=== PATIENT | female | born 1955 | race African-American/Black ===

== ENCOUNTER → 2016-11-23 | Outpatient (CLI) | payer OTHER ==
[2016-07-20 15:54] VITALS: BP 131/75
[~2016-11-23] MED LIST: ASPI81TA2 PO; ASPI81TA9 PO; ATOR40TA59 PO; CYAN10005 PO; FAMO20TA9 PO; FERR325C PO; FOLI1TAB16 PO; FURO20TA3 PO; GLIM2TAB2 PO; HYDR12.53 PO; LOSA25TA PO; LOSA50TA6 PO; MELO-156 PO; METO25TA4 PO; NITR0.4T SL; PANT40TA3 PO; PRAS10TA4 PO; ROPI0.252 PO; SIMV10TA3 PO; SITA100T PO; SITA50TA PO; TIZA6CAP PO; TRAM50TA PO; TRAZ100T12 PO
--- NOTE | 2016-11-23 10:14 | RAD ---
DATE: 11/23/2016. EXAM: DIGITAL SCREEN BILAT W/CAD. HISTORY: Routine mammographic screening. COMPARISON: 06/22/1952. This study was interpreted with the benefit of Computerized Aided Detection (CAD). FINDINGS: The breast parenchyma shows scattered fibroglandular densities. There are no suspicious masses, microcalcifications or architectural distortion. Scattered and coarse calcifications are benign. The parenchymal pattern is stable. BI-RADS CATEGORY: 2 BENIGN FINDING(S). RECOMMENDED FOLLOW-UP: 12M 12 MONTH FOLLOW-UP. PQRS compliance statement: Patient information was entered into a reminder system with a target due date 11/23/2017 for the next mammogram. Mammography is a sensitive method for finding small breast cancers, but it does not detect them all and is not a substitute for careful clinical examination. A negative mammogram does not negate a clinically suspicious finding and should not result in delay in biopsying a clinically suspicious abnormality. "Our facility is accredited by the [employer] Mammography Program."
== END | disposition home or self-care (01) ==
LOC: MAMMO 08:18
PROVIDERS: ATTEND Family Medicine
DX: Z12.31 Encounter for screening mammogram for malignant neoplasm of breast (principal)
CPT/HCPCS: G0202; 77067

== ENCOUNTER 2017-04-15 21:38 | Inpatient (IN) | payer OTHER ==
[~2017-04-15] VITALS: Ht 154.9 cm; Wt 69.9 kg
[~2017-04-15 21:38] MED LIST changes: +ASPI-612 PO; +ASPI-630 PO; -ASPI81TA2 PO; -ASPI81TA9 PO; -MELO-156 PO; +MELO7.5T29 PO; -PRAS10TA4 PO; +PRAS10TA9 PO
[2017-04-15] MEDS ORDERED: fentaNYL PF VIAL 100 MCG/2 ML VIAL IV PRN ×2 (22:00→23:45)
--- NOTE | 2017-04-15 22:13 | ED.ADGEN ---
Past Medical History Past Medical History: Cancer, Diabetes-Type I, Heart Disease, Hypertension, NC Additional Past Medical Histor: cardiomegaly, uterine cancer Past Surgical History: Hysterectomy, Other Additional Past Surgical Histo: Carpal tunnel, cardiac cath with stents,left nephrectomy Alcohol Use: None Drug Use: None Adult General Chief Complaint Chief Complaint: CHEST PAIN HPI HPI Patient is a 61 year old woman, history of type 2 diabetes mellitus, hypertension, CAD status post NC and stent placement, uterine cancer, who presents to the emergency department with complaint of chest pain. Patient states she's been expressing intermittent right-sided chest pain since yesterday morning. She states that "it started out feeling like when I had my heart attack last year". She describes it as a "soreness", located in the right side of her chest without radiation, states that it comes and goes of its own volition, without any inciting or relieving factors. She states that she was seen at earlier today for back pain, did receive an injection in her lower back. She states it was a steroid, and her sugars are running high since that time, currently her blood glucose is 343, she states she did take insulin at home after sugar of 345 shortly before arrival in the ED. Patient states she takes a blood thinner, and also a daily aspirin. She states she takes all medications as directed by her primary care provider. She states that she has an appointment to follow-up with her stock checker tomorrow for a regular checkup ,she sees Dr. Guillory patient denies any swelling extremities, any rashes, any fevers or chills, shortness breath, nausea or vomiting. She states that he experienced an episode of diaphoresis along with worsening of the chest pain or problem to come to the ED. She states currently the pain is about 7-10, is better than it was when she came in to the ED. No history of DVT or PE, weakness , numbness, tingling, headache, recent travel, recent surgery, injuries, or medication changes. Review of Systems Review of Systems Constitutional: Denies fever or chills. [] Eyes: Denies change in visual acuity. [] HENT: Denies nasal congestion or sore throat. [] Respiratory: Denies cough or shortness of breath. [] Cardiovascular: Denies chest pain or edema. [] GI: Denies abdominal pain, nausea, vomiting, bloody stools or diarrhea. [] : Denies dysuria. [] Musculoskeletal: Denies back pain or joint pain. [] Integument: Denies rash. [] Neurologic: Denies headache, focal weakness or sensory changes. [] Endocrine: Denies polyuria or polydipsia. [] Lymphatic: Denies swollen glands. [] Psychiatric: Denies depression or anxiety. [] Current Medications Current Medications Current Medications Medications (Trade) Dose Ordered Sig/Flory Start Time Stop Time Status Last Admin Dose Admin Acetaminophen (Tylenol) 650 mg PRN Q4HRS PRN 04/15/17 23:45 04/16/17 23:44 Aspirin (Children'S Aspirin) 324 mg 1X ONCE 04/15/17 22:45 04/15/17 22:46 DC 04/15/17 22:45 324 MG Dextrose (Dextrose 50%-Water Syringe) 12.5 gm PRN Q15MIN PRN 04/15/17 23:45 Fentanyl Citrate (Fentanyl 2ml Vial) 50 mcg PRN Q2HR PRN 04/15/17 23:45 04/16/17 23:44 Insulin Human Regular (NovoLIN R VIAL) 5 unit 1X ONCE 04/15/17 23:45 04/15/17 23:46 DC 04/16/17 00:01 5 UNIT Nitroglycerin (Nitrostat) 0.4 mg PRN Q5MIN PRN 04/15/17 22:00 04/15/17 22:33 0.4 MG Ondansetron HCl (Zofran) 4 mg PRN Q8HRS PRN 04/15/17 23:45 04/16/17 23:44 Allergies Allergies Allergies Coded Allergies Type Severity Reaction Last Updated Verified No Known Drug Allergies 07/20/16 No Physical Exam Physical Exam Constitutional: Well developed, well nourished, no acute distress, non-toxic appearance. [] HENT: Normocephalic, atraumatic, bilateral external ears normal, oropharynx moist, no oral exudates, nose normal. [] Eyes: PERRLA, EOMI, conjunctiva normal, no discharge. [] Neck: Normal range of motion, no tenderness, supple, no stridor. [] Cardiovascular:Heart rate regular rhythm, no murmur, S1, S2, no rubs or gallops. [] Lungs & Thorax: Bilateral breath sounds clear to auscultation, no wheezing, rhonchi, rales. No chest wall crepitus, patient with mild tenderness palpation in the right chest wall, not reproducing symptoms. No lesions or other maladies identified. Abdomen: Bowel sounds normal, soft, no tenderness, no rebound, rigidity, no guarding, no masses, no pulsatile masses. [] Skin: Warm, dry, no erythema, no rash. [] Back: No tenderness, no CVA tenderness. Patient with a Band-Aid in place over the site of her steroid injection, the lumbar spine, there is no evidence of infection, induration, tenderness or other abnormality. [] Extremities: No tenderness, no cyanosis, no clubbing, ROM intact, no edema. Negative Homans sign. [] Neurologic: Alert and oriented X 3, normal motor function, normal sensory function, no focal deficits noted. [] Psychologic: Affect normal, judgement normal, mood normal. [] Current Patient Data Vital Signs Vital Signs Date Time Temp Pulse Resp B/P (MAP) Pulse Ox O2 Delivery O2 Flow Rate FiO2 04/15/17 22:38 88 16 116/70 (85) 97 Room Air 04/15/17 21:49 98.1 98.1 Lab Values Laboratory Tests Test 04/15/17 21:49 04/15/17 22:04 04/15/17 22:15 Glucose (Fingerstick) 343 mg/dL (70-99) H White Blood Count 6.0 x10^3/uL (4.0-11.0) Red Blood Count 3.71 x10^6/uL (3.50-5.40) Hemoglobin 11.8 g/dL (12.0-15.5) L Hematocrit 34.5 % (36.0-47.0) L Mean Corpuscular Volume 93 fL (79-100) Mean Corpuscular Hemoglobin 32 pg (25-35) Mean Corpuscular Hemoglobin Concent 34 g/dL (31-37) Red Cell Distribution Width 13.4 % (11.5-14.5) Platelet Count 256 x10^3/uL (140-400) Neutrophils (%) (Auto) 75 % (31-73) H Lymphocytes (%) (Auto) 24 % (24-48) Monocytes (%) (Auto) 1 % (0-9) Eosinophils (%) (Auto) 0 % (0-3) Basophils (%) (Auto) 1 % (0-3) Neutrophils # (Auto) 4.5 x10^3uL (1.8-7.7) Lymphocytes # (Auto) 1.4 x10^3/uL (1.0-4.8) Monocytes # (Auto) 0.0 x10^3/uL (0.0-1.1) Eosinophils # (Auto) 0.0 x10^3/uL (0.0-0.7) Basophils # (Auto) 0.0 x10^3/uL (0.0-0.2) Sodium Level 137 mmol/L (136-145) Potassium Level 4.2 mmol/L (3.5-5.1) Chloride Level 100 mmol/L (98-107) Carbon Dioxide Level 24 mmol/L (21-32) Anion Gap 13 (6-14) Blood Urea Nitrogen 23 mg/dL (7-20) H Creatinine 1.5 mg/dL (0.6-1.0) H Estimated GFR (Cockcroft-Gault) 42.4 Glucose Level 356 mg/dL (70-99) H Calcium Level 9.2 mg/dL (8.5-10.1) Total Bilirubin 0.3 mg/dL (0.2-1.0) Direct Bilirubin 0.1 mg/dL (0.0-0.2) Aspartate Amino Transferase (AST) 23 U/L (15-37) Alanine Aminotransferase (ALT) 41 U/L (14-59) Alkaline Phosphatase 56 U/L (46-116) Troponin I Quantitative < 0.017 ng/mL (0.000-0.055) JZ-[id number]-[id number]-Type Natriuretic Peptide 23 pg/mL (0-124) Total Protein 8.3 g/dL (6.4-8.2) H Albumin 4.0 g/dL (3.4-5.0) Lipase 367 U/L (73-393) Urine Collection Type Unknown Urine Color Yellow Urine Clarity Clear Urine pH 6.0 Urine Specific [place] >=1.030 Urine Protein Negative mg/dL (NEG-TRACE) Urine Glucose (UA) >=1000 mg/dL (NEG) Urine Ketones (Stick) Negative mg/dL (NEG) Urine Blood Negative (NEG) Urine Nitrite Negative (NEG) Urine Bilirubin Negative (NEG) Urine Urobilinogen Dipstick 0.2 mg/dL (0.2 mg/dL) Urine Leukocyte Esterase Negative (NEG) Urine RBC 0 /HPF (0-2) Urine WBC Occ /HPF (0-4) Urine Squamous Epithelial Cells Few /LPF Urine Bacteria Few /HPF (0-FEW) Urine Opiates Screen Neg (NEG) Urine Methadone Screen Neg (NEG) Urine Barbiturates Neg (NEG) Urine Phencyclidine Screen Neg (NEG) Urine Amphetamine/Methamphetamine Neg (NEG) Urine Benzodiazepines Screen Neg (NEG) Urine Cocaine Screen Neg (NEG) Urine Cannabinoids Screen Neg (NEG) Urine Ethyl Alcohol Neg (NEG) Laboratory Tests 04/15/17 22:04 Laboratory Tests 04/15/17 22:04 EKG EKG EC: Sinus rhythm, heart rate 79 bpm, right axis deviation, QTC of 432, CT 182, QRS of 74, T-wave inversions noted in the anterior leads, left ventricle hypertrophy with repolarization, when compared to ECG from 07/20/2016 , patient has had interval normalization of leads 2, and aVF, with T-wave flattening as opposed to the T-wave inversions are previously noted, with lessening of the T-wave inversions noted in the lateral leads. No ST elevations or depressions, abnormal ECG, does not meet STEMI criteria. [] Radiology/Procedures Radiology/Procedures Chest x-ray: One view: Normal cardiopulmonary silhouette, slightly suboptimal inspiration effort, but no infiltrates, no pneumothorax, no effusions, no soft tissue or bony abnormalities identified. As interpreted by me. [] Course & Med Decision Making Course & Med Decision Making Pertinent Labs and Imaging studies reviewed. (See chart for details) Patient's chest pain improved significantly in the emergency department after administration of nitroglycerin, and aspirin. Is resting comfortably, ECG does not reveal any significant changes from prior, x-ray is unremarkable, laboratory studies reveal a normal troponin. Patient with a glucose of 343, consistent with report that she received a steroid injection today. Did discuss findings as above, she is agreeable for admission to the hospital for additional evaluation of her chest pain, due to her history and symptoms. I did discuss findings as above with Dr. Saenz, her primary care provider, patient was accepted to take full admission to his service to the cardiac telemetry floor, with consultation placed for Dr. Guillory. Bridge orders entered per discussion. Dragon Disclaimer Dragon Disclaimer This electronic medical record was generated, in whole or in part, using a voice recognition dictation system. Departure Impression: Primary Impression: Chest pain Disposition: 09 ADMITTED INPATIENT Admitting Physician: Khurram Saenz Condition: IMPROVED WILVER SMITH DO Apr 15, 2017 22:13
[2017-04-15 22:20] LABS: BASO % 1 % (0-3); EOS % 0 % (0-3); HEMATOCRIT 34.5 % (36.0-47.0); HEMOGLOBIN 11.8 g/dL (12.0-15.5); LYMPH # 1.4 x10^3/uL (1.0-4.8); LYMPH % 24 % (24-48); MEAN CORPUSCULAR HEMOGLOBIN 32 pg (25-35); MEAN CORPUSCULAR HGB CONC 34 g/dL (31-37); MEAN CORPUSCULAR VOLUME 93 fL (79-100); MONO % 1 % (0-9); NEUT % 75 % (31-73); PLATELET COUNT 256 x10^3/uL (140-400); RED BLOOD COUNT 3.71 x10^6/uL (3.50-5.40); RED CELL DISTRIBUTION WIDTH 13.4 % (11.5-14.5)
[2017-04-15 22:21] LABS: CALCIUM 9.2 mg/dL (8.5-10.1); CREATININE 1.5 mg/dL (0.6-1.0); GFR 42.4; POTASSIUM 4.2 mmol/L (3.5-5.1)
[2017-04-15] MEDS: NITROGLYCERIN SUBLINGUAL 0.4 MG BOTTLE OF 25. SL PRN ×2 (22:22→22:33)
[2017-04-15 22:27] LABS: DIRECT BILIRUBIN 0.1 mg/dL (0.0-0.2); TOTAL BILIRUBIN 0.3 mg/dL (0.2-1.0); TOTAL PROTEIN 8.3 g/dL (6.4-8.2)
[2017-04-15] MEDS ORDERED: ONDANSETRON PF 4 MG/2 ML VIAL. IV ONE (22:30)
[2017-04-15 22:36] LABS: BILIRUBIN,URINE NEGATIVE (NEG); GLUCOSE,URINE >=1000 mg/dL (NEG); NITRITE,URINE NEGATIVE (NEG); PROTEIN,URINE NEGATIVE (NEG-TRACE); UROBILINOGEN,URINE 0.2 mg/dL (0.2 mg/dL)
[2017-04-15 22:42] LABS: BARBITURATES NEG (NEG); BENZODIAZEPINES NEG (NEG); CANNABINOIDS NEG (NEG); COCAINE NEG (NEG); METHADONE NEG (NEG); OPIATES NEG (NEG); PHENCYCLIDINE NEG (NEG)
[2017-04-15 22:44] LABS: BACTERIA,URINE FEW /HPF (0-FEW); RBC,URINE 0 /HPF (0-2); SQUAMOUS EPITHELIAL CELL,UR FEW /LPF; WBC,URINE OCC /HPF (0-4)
[2017-04-15] MEDS ORDERED: ASPIRIN CHEWABLE 81 MG TABLET. PO ONE (22:45)
[2017-04-15] MEDS ORDERED: INSULIN REGULAR 100 UNIT/ML 10ML VIAL. IV ONE (23:45)
[2017-04-15] MEDS ORDERED: DEXTROSE 50% 25 GM / 50ML DISP.SYRIN. IV PRN (23:45)
[2017-04-15] MEDS ORDERED: ACETAMINOPHEN 325 MG TABLET. PO PRN (23:45)
[2017-04-15] MEDS ORDERED: ONDANSETRON PF 4 MG/2 ML VIAL. IV PRN (23:45)
[2017-04-16] VITALS (7 sets, daily range): BP systolic 118–142; BP diastolic 67–80
--- NOTE | 2017-04-16 01:26 | ACF ---
Admission Forms Criteria CARDIOLOGY GRG Clinical Indications for Admission to Inpatient Care ( Place 'X' for any and all applicable criteria): Hospital admission is needed for appropriate care of the patient because of ANY ONE of the following (1): [ ] I. Hemodynamic instability as indicated by ALL of the following (1)(2)(3) (4)(5) [ ]a) Vital signs or other findings not as expected for chronic patient condition or baseline [ ]b) Instability indicated by ANY ONE of the following: [ ]i) Hypotension [ ]ii) Symptomatic Tachycardia unresponsive to treatment ( e.g., analgesia, fluids, sedation as indicated) [ ]iii) Inadequate perfusion indicated by ANY ONE of the following: [ ] 1) Lactic acidosis (> 2 mmol/L) [ ] 2) New abnormal capillary refill (> 3 seconds) [ ] 3) Reduced urine output [ ] 4) New altered mental status [ ]iv) Orthostatic vital sign changes unresponsive to treatment (e.g., fluids) [ ]v) IV inotropic or vasopressor medication required to maintain adequate blood pressure or perfusion [ ] II. Severe heart failure as indicated by ANY ONE of the following(17)(18) [ ]a) Respiratory distress [ ]b) Hypotension [ ]c) Anasarca (refractory to outpatient therapy) [ ]d) Cardiac arrhythmias of immediate concern [ ]e) Myocardial ischemia [ ] III. Cardiac arrhythmias or findings of immediate concern indicated by ANY ONE of the following (19)(20): [ ] a) Heart rhythms that are inherently dangerous or unstable indicated by ANY ONE of the following (21)(22)(23): [ ] i) Resuscitated ventricular fibrillation or cardiac arrest [ ] ii) Ventricular escape rhythm [ ] iii) Sustained ventricular tachycardia (30 seconds or more of ventricular rhythm at greater than 100 beats per minute) [ ] iv) Nonsustained ventricular tachycardia and ANY ONE of the following: [ ] 1) Suspected cardiac ischemia as cause or consequence of ventricular tachycardia [ ] 2) In setting of acute myocarditis [ ] b) Unstable cardiac conduction defects indicated by ANY ONE of the following(23)(24)(25) [ ] i) Type II second-degree atrioventricular block [ ]ii) Third-degree atrioventricular block [ ]iii) New-onset left bundle branch block with suspected myocardial ischemia [ ]c) Any heart rhythm and ANY ONE of the following (21)(22)(26)(27) (28) [ ] i) Continuous long-term ECG monitoring needed (e.g., initiation of drug requiring monitoring for more than 24 hours) [ ] ii) Patient has automatic implanted cardioverter defibrillator that is repeatedly firing, malfunctioning, or in need of immediate adjustment of settings beyond the scope of ambulatory or observation care [ ]d) Heart rhythms of concern due to ANY ONE of the following: [ ] i) Hypotension [ ] ii) Respiratory distress [ ] iii) Association with other significant symptoms (e.g., bradycardia with syncope or ongoing dizziness, supraventricular tachycardia with chest pain (14)(15)(17) [ ] IV. Monitoring for cardiac contusion beyond the scope of observation care needed [A](30)(31)(32) [ ] V. Surgical or device complication (e.g., valve replacement complication , pacemaker dysfunction) (35)(41)(44)(45)(46) [ ] . Inpatient palliative care needed. [B](49) Also use Inpatient Palliative Care Criteria [ ] VII. Nonbacterial thrombotic (marantic) endocarditis (36)(43)(47)(48) [X] VIII. Cardiology condition, symptom, or finding for which emergency and observation care has failed or are not considered appropriate. [ ] IX. Acute valvular disease requiring inpatient as indicated by ANY ONE of the following (41) [ ]a) Acute valvular regurgitation (42) [ ]b) Noninfectious valvulitis (43) [ ]c) Obstructive valve thrombosis [ ]d) Paravalvular leak [ ]e) Other significant valvular disorder remaining after emergency or observation level of care (as appropriate) [ ]X. Pericardial disease requiring inpatient treatment as indicated by ANY ONE of the following (33)(34)(35)(36)(37) [ ]a) Suspected tamponade (38)(39)(40) [ ]b) Hemopericardium [ ]c) Other significant pericardial disorder remaining after emergency or observation level of care (as appropriate) [ ] XI. Cardiac ischemia beyond scope of emergency and observation care. [ ] XII. Hypertension requiring inpatient treatment as indicated by ANY ONE of the following (6)(7)(8) [ ]a) SBP greater than 220 mm Hg or DBP greater than 120 mmHg despite treatment [ ]b) SBP greater than 140 mm Hg or DBP greater than 100 mm Hg with evidence of acute end organ damage as indicated by ANY ONE of the following [ ] i) Encephalopathy [ ] ii) Acute renal failure as indicated by new onset of ANY ONE of the following (9)(10)(11)(12)(13) [ ]1) 3-fold rise in serum creatinine from baseline [ ]2) Serum creatinine greater than 4 mg/dL ( 354 micromoles/L) with acute rise greater than 0.5 mg/dL (44.2 micromoles/L) [ ]3) Reduction of more than 75% in estimated glomerular filtration rate from baseline [ ]4) Estimated glomerular filtration rate less than 35 mL/min/1.73m2 (0.59 mL/sec/1.73m2) in child up to 18 years of age [ ]5) Cessation of urine output indicated by ALL of the following [ ]A. Adequate volume status [ ]B. Inadequate urine output as indicated by ANY ONE of the following [ ]a. Urine output less than 0.3 mL/kg/hr for 24 hours [ ]b. Anuria (urine output less than 0.1 mL/kg/hr) for 12 hours [ ] iii) Aortic dissection [ ] iv) Myocardial Ischemia [ ] v) Left ventricular heart failure [ ]vi) Retinal Hemorrhage [ ]vii) Other significant finding [ ]c) Hypertension in child requiring inpatient treatment as indicated by ALL of the following(14)(15)(16) [ ] i) Outpatient treatment not effective, not available, or not appropriate [ ]ii) SBP or DBP greater than 95th percentile for age [ ]iii) Evidence of acute end organ damage as indicated by ANY ONE of the following [ ]1) Altered mental status [ ]2) Acute renal failure as indicated by new onset of ANY ONE of the following(9)(10)(11)(12)(13) [ ]A. 3-fold rise in serum creatinine from baseline [ ]B. Serum creatinine greater than 4 mg/dL (354 micromoles/L) with acute rise greater than 0.5 mg/dL (44.2 micromoles/L) [ ]C. Reduction of more than 75% in estimated glomerular filtration rate from baseline [ ]D. Estimated glomerular filtration rate less than 35 mL/min/1.73m2 (0.59 mL/sec/1.73m2) in child up to 18 years of age [ ]E. Cessation of urine output indicated by ALL of the following [ ]a. Adequate volume status [ ]b. Inadequate urine output as indicated by ANY ONE of the following [ ]i) Urine output less than 0.3 mL/kg/hr for 24 hours [ ]ii) Anuria ( urine output less than 0.1 mL/kg/hr) for 12 hours [ ]3) Severe headache [ ]4) Visual disturbance [ ]5) Retinal hemorrhage [ ]6) Other significant finding [ ]XIII. Complications of transplanted heart indicated by ANY ONE of the following(61): [ ]a) Acute graft rejection requiring inpatient management (eg, intravenous immunosuppression)(62)(63) [ ]b) Acute graft heart failure indicated by ANY ONE of the following(64): [ ]i) Hemodynamic instability [ ]ii) Cardiac arrhythmias of immediate concern [ ]iii) Pulmonary edema that is very severe (eg, mechanical ventilation needed, imminent or likely, need for 100% oxygen to keep oxygen saturation above 90%) [ ]iv) Pulmonary edema that is persistent as indicated by ALL of the following: [ ]1) New need for oxygen therapy to keep oxygen saturation above 90% (or increased FiO2 need from baseline) [ ]2) Has not improved sufficiently with emergency department or observation care IV diuretics or other heart failure treatments[E] [ ]v) Altered mental status that is severe or persistent [ ]vi) Increased creatinine (new on laboratory test) with reduction of more than 50% in estimated glomerular filtration rate from baseline [ ]vii) Progressively (ongoing) rising creatinine (known from past laboratory test) with reduction of more than 25% in estimated glomerular filtration rate from baseline [ ]viii) Acute renal failure [ ]ix) Acute peripheral ischemia (eg, examination shows pulseless, cool, mottled, or cyanotic extremity) [ ]x) Pulmonary artery catheter monitoring needed [ ]xi) Other sign or symptom of heart failure requiring inpatient treatment (ie, too severe or not responsive to outpatient and observation care treatment) [ ]c) Infection requiring inpatient management (eg, Hemodynamic instability, need for intravenous antimicrobial treatment)(66)(67)(68)(69)(70) [ ]d) Cardiac allograft vasculopathy requiring inpatient management ( eg evidence of cardiac ischemia)(71) [ ]e) Other complication of transplanted heart (eg, stroke, severe pulmonary hypertension, severe valvular dysfunction) requiring inpatient management(72) The original [facility] content created by [facility] has been revised. The portions of the content which have been revised are identified through the use of italic text or in bold, and [facility] has neither reviewed nor approved the modified material. All other unmodified content is copyright [facility]. Please see references footnoted in the original [facility] edition 2016 Admission Criteria Met?: Yes LORRAINE AVALOS Apr 16, 2017 01:26
[2017-04-16 05:09] LABS: BASO % 0 % (0-3); EOS % 0 % (0-3); HEMATOCRIT 34.3 % (36.0-47.0); HEMOGLOBIN 11.6 g/dL (12.0-15.5); LYMPH # 1.9 x10^3/uL (1.0-4.8); LYMPH % 27 % (24-48); MEAN CORPUSCULAR HEMOGLOBIN 32 pg (25-35); MEAN CORPUSCULAR HGB CONC 34 g/dL (31-37); MEAN CORPUSCULAR VOLUME 94 fL (79-100); MONO % 3 % (0-9); NEUT % 70 % (31-73); PLATELET COUNT 255 x10^3/uL (140-400); RED BLOOD COUNT 3.65 x10^6/uL (3.50-5.40); RED CELL DISTRIBUTION WIDTH 13.2 % (11.5-14.5); WHITE BLOOD COUNT 6.9 x10^3/uL (4.0-11.0)
[2017-04-16 05:19] LABS: CALCIUM 9.6 mg/dL (8.5-10.1); CREATININE 1.5 mg/dL (0.6-1.0); GFR 42.4; POTASSIUM 4.3 mmol/L (3.5-5.1)
--- NOTE | 2017-04-16 07:09 | EKG ---
[facility] [address] [place] [address] Test Date: 2017-04-15 Test Time: 21:45:47 Pat Name: YEMI URIARTE Department: Room: Gender: F Printer Machine: : [id number] Requested By: WILVER SMITH Order Number: [id number] Reading MD: Measurements Intervals [place] Rate: 79 P: 138 RI: 182 QRS: -177 QRSD: 74 T: 146 QT: 376 QTc: 432 Interpretive Statements SINUS RHYTHM ABNORMAL RIGHT SUPERIOR AXIS DEVIATION T ABNORMALITY IN ANTERIOR LEADS LATERAL LEADS ABNORMAL ECG RI6.01 No previous ECG available for comparison
[2017-04-16] MEDS ORDERED: INSULIN ASPART 300 UNITS/3 ML INSULN.PEN SQ SCH (08:00)
[2017-04-16] MEDS ORDERED: INSULIN DETEMIR 300 UNITS/3 ML INSULN.PEN. SQ ONE (08:15)
--- NOTE | 2017-04-16 08:25 | PDOC1 ---
History and Physical Date of Admission Date of Admission DATE: TIME: 08:22 Past Medical History Cardiovascular: CAD, HTN, [place], Hyperlipidemia Pulmonary: Asthma CENTRAL NERVOUS SYSTEM: Other GI: No pertinent hx Heme/Onc: Cancer Hepatobiliary: No pertinent hx Psych: No pertinent hx Musculoskeletal: Osteoarthritis Rheumatologic: No pertinent hx Infectious disease: No pertinent hx Renal/: Chronic renal insuff Endocrine: Diabetes Past Surgical History Past Surgical History: Hysterectomy, Other Family History Family History: Coronary Artery Disease Social History ALCOHOL: none Drugs: None Current Problem List Problem List Problems Medical Problems: (1) Chest pain Status: Acute Problems: Current Medications Current Medications Current Medications Fentanyl Citrate (Fentanyl 2ml Vial) 25 mcg PRN Q15MIN PRN IV PAIN GREATER THAN 3/10; Start 04/15/17 at 22:00; Stop 04/16/17 at 21:59 Nitroglycerin (Nitrostat) 0.4 mg PRN Q5MIN PRN SL CHEST PAIN Last administered on 04/15/17 22:33; Start 04/15/17 at 22:00 Ondansetron HCl (Zofran) 4 mg 1X ONCE IV ; Start 04/15/17 at 22:30; Stop at 22:31; Status DC Aspirin (Children'S Aspirin) 324 mg 1X ONCE PO Last administered on 04/15/17t 22:45; Start 04/15/17 at 22:45; Stop 04/15/17 at 22:46; Status DC Ondansetron HCl (Zofran) 4 mg PRN Q8HRS PRN IV NAUSEA/VOMITING; Start 04/15/17 at 23:45; Stop 04/16/17 at 23:44 Fentanyl Citrate (Fentanyl 2ml Vial) 50 mcg PRN Q2HR PRN IV PAIN; Start at 23:45; Stop 04/16/17 at 23:44 Acetaminophen (Tylenol) 650 mg PRN Q4HRS PRN PO FEVER; Start 04/15/17 at 23:45 ; Stop 04/16/17 at 23:44 Insulin Aspart (NovoLOG) 0-5 UNITS TIDWMEALS SQ ; Start 04/16/17 at 08:00; Stop 04/16/17 at 08:13; Status DC Dextrose (Dextrose 50%-Water Syringe) 12.5 gm PRN Q15MIN PRN IV SEE COMMENTS; Start 04/15/17 at 23:45 Insulin Human Regular (NovoLIN R VIAL) 5 unit 1X ONCE IV Last administered on 04/16/17t 00:01; Start 04/15/17 at 23:45; Stop 04/15/17 at 23:46; Status DC Aspirin (Ecotrin) 81 mg DAILYWBKFT PO ; Start 04/16/17 at 09:00 Atorvastatin Calcium (Lipitor) 10 mg QHS PO ; Start 04/16/17 at 21:00 Glimepiride (Amaryl) 2 mg DAILY08 PO ; Start 04/17/17 at 08:30 Hydrochlorothiazide (Microzide) 12.5 mg DAILY PO ; Start 04/16/17 at 09:00 Losartan Potassium (Cozaar) 50 mg DAILY08 PO ; Start 04/16/17 at 09:00 Metoprolol Tartrate (Lopressor) 25 mg BID PO ; Start 04/16/17 at 09:00 Pantoprazole Sodium (Protonix) 40 mg DAILY07 PO ; Start 04/16/17 at 09:00 Prasugrel (Effient) 10 mg DAILYWBKFT PO ; Start 04/16/17 at 09:00 Trazodone HCl (Desyrel) 100 mg HS PO ; Start 04/16/17 at 21:00 Insulin Detemir (Levemir) 20 units 1X ONCE SQ ; Start 04/16/17 at 08:15; Stop 04/16/17 at 08:20; Status DC Active Scripts Active Hydrochlorothiazide Capsule (Hydrochlorothiazide) 12.5 Mg Capsule 1 Cap PO DAILY Effient (Prasugrel Hcl) 10 Mg Tablet 10 Mg PO DAILYWBKFT Metoprolol Tartrate 25 Mg Tablet 25 Mg PO BID Atorvastatin Calcium 40 Mg Tablet 10 Mg PO QHS 30 Days Aspirin Ec (Aspirin) 81 Mg Tablet. 81 Mg PO DAILYWBKFT Reported Januvia (Sitagliptin Phosphate) 50 Mg Tablet 50 Mg PO BID Losartan Potassium 50 Mg Tablet 50 Mg PO Protonix (Pantoprazole Sodium) 40 Mg Tablet.dr 1 Tab PO DAILY Trazodone Hcl 100 Mg Tablet 100 Mg PO HS Glimepiride 2 Mg Tablet 2 Mg PO DAILY08 Allergies Allergies: Coded Allergies: No Known Drug Allergies (Unverified , 07/20/16) Vitals Vitals Vital Signs Date Time Temp Pulse Resp B/P (MAP) Pulse Ox O2 Delivery O2 Flow Rate FiO2 04/16/17 06:52 98.6 83 17 130/67 (88) 96 Room Air 98.6 Labs Labs Laboratory Tests Test 04/15/17 21:49 04/15/17 22:04 04/15/17 22:15 04/16/17 04:10 Glucose (Fingerstick) 343 mg/dL (70-99) White Blood Count 6.0 x10^3/uL (4.0-11.0) 6.9 x10^3/uL (4.0-11.0) Red Blood Count 3.71 x10^6/uL (3.50-5.40) 3.65 x10^6/uL (3.50-5.40) Hemoglobin 11.8 g/dL (12.0-15.5) 11.6 g/dL (12.0-15.5) Hematocrit 34.5 % (36.0-47.0) 34.3 % (36.0-47.0) Mean Corpuscular Volume 93 fL (79-100) 94 fL (79-100) Mean Corpuscular Hemoglobin 32 pg (25-35) 32 pg (25-35) Mean Corpuscular Hemoglobin Concent 34 g/dL (31-37) 34 g/dL (31-37) Red Cell Distribution Width 13.4 % (11.5-14.5) 13.2 % (11.5-14.5) Platelet Count 256 x10^3/uL (140-400) 255 x10^3/uL (140-400) Neutrophils (%) (Auto) 75 % (31-73) 70 % (31-73) Lymphocytes (%) (Auto) 24 % (24-48) 27 % (24-48) Monocytes (%) (Auto) 1 % (0-9) 3 % (0-9) Eosinophils (%) (Auto) 0 % (0-3) 0 % (0-3) Basophils (%) (Auto) 1 % (0-3) 0 % (0-3) Neutrophils # (Auto) 4.5 x10^3uL (1.8-7.7) 4.9 x10^3uL (1.8-7.7) Lymphocytes # (Auto) 1.4 x10^3/uL (1.0-4.8) 1.9 x10^3/uL (1.0-4.8) Monocytes # (Auto) 0.0 x10^3/uL (0.0-1.1) 0.2 x10^3/uL (0.0-1.1) Eosinophils # (Auto) 0.0 x10^3/uL (0.0-0.7) 0.0 x10^3/uL (0.0-0.7) Basophils # (Auto) 0.0 x10^3/uL (0.0-0.2) 0.0 x10^3/uL (0.0-0.2) Sodium Level 137 mmol/L (136-145) 137 mmol/L (136-145) Potassium Level 4.2 mmol/L (3.5-5.1) 4.3 mmol/L (3.5-5.1) Chloride Level 100 mmol/L (98-107) 100 mmol/L (98-107) Carbon Dioxide Level 24 mmol/L (21-32) 25 mmol/L (21-32) Anion Gap 13 (6-14) 12 (6-14) Blood Urea Nitrogen 23 mg/dL (7-20) 23 mg/dL (7-20) Creatinine 1.5 mg/dL (0.6-1.0) 1.5 mg/dL (0.6-1.0) Estimated GFR (Cockcroft-Gault) 42.4 42.4 Glucose Level 356 mg/dL (70-99) 360 mg/dL (70-99) Calcium Level 9.2 mg/dL (8.5-10.1) 9.6 mg/dL (8.5-10.1) Total Bilirubin 0.3 mg/dL (0.2-1.0) Direct Bilirubin 0.1 mg/dL (0.0-0.2) Aspartate Amino Transf (AST/SGOT) 23 U/L (15-37) Alanine Aminotransferase (ALT/SGPT) 41 U/L (14-59) Alkaline Phosphatase 56 U/L (46-116) Troponin I Quantitative < 0.017 ng/mL (0.000-0.055) < 0.017 ng/mL (0.000-0.055) XC-Ogs-M-Type Natriuretic Peptide 23 pg/mL (0-124) Total Protein 8.3 g/dL (6.4-8.2) Albumin 4.0 g/dL (3.4-5.0) Lipase 367 U/L (73-393) Urine Collection Type Unknown Urine Color Yellow Urine Clarity Clear Urine pH 6.0 Urine Specific [place] >=1.030 Urine Protein Negative mg/dL (NEG-TRACE) Urine Glucose (UA) >=1000 mg/dL (NEG) Urine Ketones (Stick) Negative mg/dL (NEG) Urine Blood Negative (NEG) Urine Nitrite Negative (NEG) Urine Bilirubin Negative (NEG) Urine Urobilinogen Dipstick 0.2 mg/dL (0.2 mg/dL) Urine Leukocyte Esterase Negative (NEG) Urine RBC 0 /HPF (0-2) Urine WBC Occ /HPF (0-4) Urine Squamous Epithelial Cells Few /LPF Urine Bacteria Few /HPF (0-FEW) Urine Opiates Screen Neg (NEG) Urine Methadone Screen Neg (NEG) Urine Barbiturates Neg (NEG) Urine Phencyclidine Screen Neg (NEG) Urine Amphetamine/Methamphetamine Neg (NEG) Urine Benzodiazepines Screen Neg (NEG) Urine Cocaine Screen Neg (NEG) Urine Cannabinoids Screen Neg (NEG) Urine Ethyl Alcohol Neg (NEG) Laboratory Tests Test 04/15/17 21:49 04/15/17 22:04 04/15/17 22:15 04/16/17 04:10 Glucose (Fingerstick) 343 mg/dL (70-99) White Blood Count 6.0 x10^3/uL (4.0-11.0) 6.9 x10^3/uL (4.0-11.0) Red Blood Count 3.71 x10^6/uL (3.50-5.40) 3.65 x10^6/uL (3.50-5.40) Hemoglobin 11.8 g/dL (12.0-15.5) 11.6 g/dL (12.0-15.5) Hematocrit 34.5 % (36.0-47.0) 34.3 % (36.0-47.0) Mean Corpuscular Volume 93 fL (79-100) 94 fL (79-100) Mean Corpuscular Hemoglobin 32 pg (25-35) 32 pg (25-35) Mean Corpuscular Hemoglobin Concent 34 g/dL (31-37) 34 g/dL (31-37) Red Cell Distribution Width 13.4 % (11.5-14.5) 13.2 % (11.5-14.5) Platelet Count 256 x10^3/uL (140-400) 255 x10^3/uL (140-400) Neutrophils (%) (Auto) 75 % (31-73) 70 % (31-73) Lymphocytes (%) (Auto) 24 % (24-48) 27 % (24-48) Monocytes (%) (Auto) 1 % (0-9) 3 % (0-9) Eosinophils (%) (Auto) 0 % (0-3) 0 % (0-3) Basophils (%) (Auto) 1 % (0-3) 0 % (0-3) Neutrophils # (Auto) 4.5 x10^3uL (1.8-7.7) 4.9 x10^3uL (1.8-7.7) Lymphocytes # (Auto) 1.4 x10^3/uL (1.0-4.8) 1.9 x10^3/uL (1.0-4.8) Monocytes # (Auto) 0.0 x10^3/uL (0.0-1.1) 0.2 x10^3/uL (0.0-1.1) Eosinophils # (Auto) 0.0 x10^3/uL (0.0-0.7) 0.0 x10^3/uL (0.0-0.7) Basophils # (Auto) 0.0 x10^3/uL (0.0-0.2) 0.0 x10^3/uL (0.0-0.2) Sodium Level 137 mmol/L (136-145) 137 mmol/L (136-145) Potassium Level 4.2 mmol/L (3.5-5.1) 4.3 mmol/L (3.5-5.1) Chloride Level 100 mmol/L (98-107) 100 mmol/L (98-107) Carbon Dioxide Level 24 mmol/L (21-32) 25 mmol/L (21-32) Anion Gap 13 (6-14) 12 (6-14) Blood Urea Nitrogen 23 mg/dL (7-20) 23 mg/dL (7-20) Creatinine 1.5 mg/dL (0.6-1.0) 1.5 mg/dL (0.6-1.0) Estimated GFR (Cockcroft-Gault) 42.4 42.4 Glucose Level 356 mg/dL (70-99) 360 mg/dL (70-99) Calcium Level 9.2 mg/dL (8.5-10.1) 9.6 mg/dL (8.5-10.1) Total Bilirubin 0.3 mg/dL (0.2-1.0) Direct Bilirubin 0.1 mg/dL (0.0-0.2) Aspartate Amino Transf (AST/SGOT) 23 U/L (15-37) Alanine Aminotransferase (ALT/SGPT) 41 U/L (14-59) Alkaline Phosphatase 56 U/L (46-116) Troponin I Quantitative < 0.017 ng/mL (0.000-0.055) < 0.017 ng/mL (0.000-0.055) JT-Rvr-P-Type Natriuretic Peptide 23 pg/mL (0-124) Total Protein 8.3 g/dL (6.4-8.2) Albumin 4.0 g/dL (3.4-5.0) Lipase 367 U/L (73-393) Urine Collection Type Unknown Urine Color Yellow Urine Clarity Clear Urine pH 6.0 Urine Specific [place] >=1.030 Urine Protein Negative mg/dL (NEG-TRACE) Urine Glucose (UA) >=1000 mg/dL (NEG) Urine Ketones (Stick) Negative mg/dL (NEG) Urine Blood Negative (NEG) Urine Nitrite Negative (NEG) Urine Bilirubin Negative (NEG) Urine Urobilinogen Dipstick 0.2 mg/dL (0.2 mg/dL) Urine Leukocyte Esterase Negative (NEG) Urine RBC 0 /HPF (0-2) Urine WBC Occ /HPF (0-4) Urine Squamous Epithelial Cells Few /LPF Urine Bacteria Few /HPF (0-FEW) Urine Opiates Screen Neg (NEG) Urine Methadone Screen Neg (NEG) Urine Barbiturates Neg (NEG) Urine Phencyclidine Screen Neg (NEG) Urine Amphetamine/Methamphetamine Neg (NEG) Urine Benzodiazepines Screen Neg (NEG) Urine Cocaine Screen Neg (NEG) Urine Cannabinoids Screen Neg (NEG) Urine Ethyl Alcohol Neg (NEG) VTE Prophylaxis Ordered VTE Prophylaxis Devices: No VTE Pharmacological Prophylaxi: No Assessment/Plan Assessment/Plan hx of cad 1 year ago, stent tneh, controlled dm/ a1c 7.3, presented w/ 2 d R chest pain, not tyypical re angina- labs /exam all ok- on statin, acei also- had epidural at [facility] day before admit but sxs preceded that- will see cv doc re ? mpi today, add some levemir re steroid induced hyperglycemia MAYRA PRAJAPATI MD Apr 16, 2017 08:25
--- NOTE | 2017-04-16 08:47 | RAD ---
INDICATION: CP COMPARISON: 07/20/2016 FINDINGS: Single view of chest obtained. No focal airspace consolidation. Mediastinal contour is mildly prominent but could be from portable technique. No gross osseous destructive lesion. There is some calcification or heterotopic ossification adjacent to left shoulder. IMPRESSION: No focal airspace consolidation or edema.
--- NOTE | 2017-04-16 09:31 | PDOC2 ---
CARDIAC CONSULT DATE OF CONSULT Date of Consult DATE: 04/16/17 TIME: 09:25 REASON FOR CONSULT Reason for Consult: CP, r/o ACS REFERRING PHYSICIAN Referring Physician: Payal SOURCE Source: Chart review, Patient HISTORY OF PRESENT ILLNESS HISTORY OF PRESENT ILLNESS This is s pleasant 61 yo female admitted for complains of chest pain. Reports that she started having right chest soreness Saturday night and finally got better after excedrin. She went to yesterday to have her steroid shot to her lower back and noted that her BG was in the 340s and typically her BG runs in the 200s. That evening she started having right chest discomfort again which then extended to her left chest which sometimes it was severe. She took 1 NTG and pain was decreased but continued on. There was no nausea, vomiting, palpitations nor SOA. She has been feeling weak lately but no significant SOA. She is sedentary for the most part, no exercise and does not completely follow her DM diet regimen and drink mostly diet sodas. Verbalized compliance with her medications including her ASA and plavix. She did have stress test in 2014 which came back normal then a yr later she ended up with inferior STEMI with other diseases to her vessels. Her home BP has been controlled and no use of recreational drugs. Denies any recent heavy lifting, falls, or any injury. PAST MEDICAL HISTORY Cardiovascular: CAD, HTN, [place], Hyperlipidemia Pulmonary: No pertinent hx CENTRAL NERVOUS SYSTEM: Other (No pertinent history) GI: GERD Heme/Onc: Anemia NOS, Cancer (uterine CA treated with radiation) Hepatobiliary: No pertinent hx Psych: No pertinent hx Musculoskeletal: low back pain, Osteoarthritis Rheumatologic: No pertinent hx Infectious disease: No pertinent hx ENT: No pertinent hx Renal/: Chronic renal insuff (CKD 3) Endocrine: Diabetes (2) Dermatology: No pertinent hx PAST SURGICAL HISTORY Past Surgical History: Hysterectomy, Other (left nephrectomy (damaged by chemo per pt); PCI/LUCIA to RCA 01/2016) FAMILY HISTORY Family History: Coronary Artery Disease SOCIAL HISTORY Smoke: No ALCOHOL: none Drugs: None Lives: with Family CURRENT MEDICATIONS CURRENT MEDICATIONS Current Medications Medications (Trade) Dose Ordered Sig/Flory Route PRN Reason Start Time Stop Time Status Last Admin Dose Admin Nitroglycerin (Nitrostat) 0.4 mg PRN Q5MIN PRN SL CHEST PAIN 04/15/17 22:00 04/15/17 22:33 Aspirin (Children'S Aspirin) 324 mg 1X ONCE PO 04/15/17 22:45 04/15/17 22:46 DC 04/15/17 22:45 Insulin Human Regular (NovoLIN R VIAL) 5 unit 1X ONCE IV 04/15/17 23:45 04/15/17 23:46 DC 04/16/17 00:01 Insulin Detemir (Levemir) 20 units 1X ONCE SQ 04/16/17 08:15 04/16/17 08:20 DC 04/16/17 08:53 ALLERGIES ALLERGIES: Coded Allergies: No Known Drug Allergies (Unverified , 07/20/16) ROS Review of System 14 point ROS evaluated wtih pertinent positives noted per HPI PHYSICAL EXAM General: Alert, Oriented X3, Cooperative, No acute distress HEENT: Atraumatic, Mucous membr. moist/pink Lungs: Clear to auscultation, Normal air movement Heart: Regular rate (SR), Normal S1, Normal S2, Other (2/6 systolic murmur to LLS border) Abdomen: Soft, No tenderness Extremities: No cyanosis, No edema Skin: No breakdown, No significant lesion Neuro: Normal speech, Sensation intact Psych/Mental Status: Mental status NL, Mood NL MUSCULOSKELETAL: Osteoarthritic changes both hands VITALS VITALS Vital Signs Date Time Temp Pulse Resp B/P (MAP) Pulse Ox O2 Delivery O2 Flow Rate FiO2 04/16/17 08:00 Room Air 04/16/17 06:52 98.6 83 17 130/67 (88) 96 98.6 LABS Lab: Laboratory Tests Test 04/15/17 21:49 04/15/17 22:04 04/15/17 22:15 04/16/17 04:10 Glucose (Fingerstick) 343 mg/dL (70-99) White Blood Count 6.0 x10^3/uL (4.0-11.0) 6.9 x10^3/uL (4.0-11.0) Red Blood Count 3.71 x10^6/uL (3.50-5.40) 3.65 x10^6/uL (3.50-5.40) Hemoglobin 11.8 g/dL (12.0-15.5) 11.6 g/dL (12.0-15.5) Hematocrit 34.5 % (36.0-47.0) 34.3 % (36.0-47.0) Mean Corpuscular Volume 93 fL (79-100) 94 fL (79-100) Mean Corpuscular Hemoglobin 32 pg (25-35) 32 pg (25-35) Mean Corpuscular Hemoglobin Concent 34 g/dL (31-37) 34 g/dL (31-37) Red Cell Distribution Width 13.4 % (11.5-14.5) 13.2 % (11.5-14.5) Platelet Count 256 x10^3/uL (140-400) 255 x10^3/uL (140-400) Neutrophils (%) (Auto) 75 % (31-73) 70 % (31-73) Lymphocytes (%) (Auto) 24 % (24-48) 27 % (24-48) Monocytes (%) (Auto) 1 % (0-9) 3 % (0-9) Eosinophils (%) (Auto) 0 % (0-3) 0 % (0-3) Basophils (%) (Auto) 1 % (0-3) 0 % (0-3) Neutrophils # (Auto) 4.5 x10^3uL (1.8-7.7) 4.9 x10^3uL (1.8-7.7) Lymphocytes # (Auto) 1.4 x10^3/uL (1.0-4.8) 1.9 x10^3/uL (1.0-4.8) Monocytes # (Auto) 0.0 x10^3/uL (0.0-1.1) 0.2 x10^3/uL (0.0-1.1) Eosinophils # (Auto) 0.0 x10^3/uL (0.0-0.7) 0.0 x10^3/uL (0.0-0.7) Basophils # (Auto) 0.0 x10^3/uL (0.0-0.2) 0.0 x10^3/uL (0.0-0.2) Sodium Level 137 mmol/L (136-145) 137 mmol/L (136-145) Potassium Level 4.2 mmol/L (3.5-5.1) 4.3 mmol/L (3.5-5.1) Chloride Level 100 mmol/L (98-107) 100 mmol/L (98-107) Carbon Dioxide Level 24 mmol/L (21-32) 25 mmol/L (21-32) Anion Gap 13 (6-14) 12 (6-14) Blood Urea Nitrogen 23 mg/dL (7-20) 23 mg/dL (7-20) Creatinine 1.5 mg/dL (0.6-1.0) 1.5 mg/dL (0.6-1.0) Estimated GFR (Cockcroft-Gault) 42.4 42.4 Glucose Level 356 mg/dL (70-99) 360 mg/dL (70-99) Calcium Level 9.2 mg/dL (8.5-10.1) 9.6 mg/dL (8.5-10.1) Total Bilirubin 0.3 mg/dL (0.2-1.0) Direct Bilirubin 0.1 mg/dL (0.0-0.2) Aspartate Amino Transf (AST/SGOT) 23 U/L (15-37) Alanine Aminotransferase (ALT/SGPT) 41 U/L (14-59) Alkaline Phosphatase 56 U/L (46-116) Troponin I Quantitative < 0.017 ng/mL (0.000-0.055) < 0.017 ng/mL (0.000-0.055) ZS-Qep-X-Type Natriuretic Peptide 23 pg/mL (0-124) Total Protein 8.3 g/dL (6.4-8.2) Albumin 4.0 g/dL (3.4-5.0) Lipase 367 U/L (73-393) Urine Collection Type Unknown Urine Color Yellow Urine Clarity Clear Urine pH 6.0 Urine Specific [place] >=1.030 Urine Protein Negative mg/dL (NEG-TRACE) Urine Glucose (UA) >=1000 mg/dL (NEG) Urine Ketones (Stick) Negative mg/dL (NEG) Urine Blood Negative (NEG) Urine Nitrite Negative (NEG) Urine Bilirubin Negative (NEG) Urine Urobilinogen Dipstick 0.2 mg/dL (0.2 mg/dL) Urine Leukocyte Esterase Negative (NEG) Urine RBC 0 /HPF (0-2) Urine WBC Occ /HPF (0-4) Urine Squamous Epithelial Cells Few /LPF Urine Bacteria Few /HPF (0-FEW) Urine Opiates Screen Neg (NEG) Urine Methadone Screen Neg (NEG) Urine Barbiturates Neg (NEG) Urine Phencyclidine Screen Neg (NEG) Urine Amphetamine/Methamphetamine Neg (NEG) Urine Benzodiazepines Screen Neg (NEG) Urine Cocaine Screen Neg (NEG) Urine Cannabinoids Screen Neg (NEG) Urine Ethyl Alcohol Neg (NEG) Test 04/16/17 08:29 Glucose (Fingerstick) 286 mg/dL (70-99) ECHOCARDIOGRAM ECHOCARDIOGRAM <Conclusion> Normal LV systolic function. EF 60% Subtle basal inferior wall hypokinesis consistent inferior STEMI No significant valvular heart disease. DATE: 02/13/16 1636 STRESS TEST STRESS TEST Conclusion 1. Regadenoson cardioisotope stress test did not show any evidence of ischemia or infarct. 2. Normal left ventricular systolic function with ejection fraction calculated at 75%. 3. Low risk for cardiovascular events. DATE: 02/08/15 1606 HEART CATH HEART CATH Conclusion 1. Inferior STEMI. 2. Successful PCI of the mid and distal RCA with implantation of overlapping Xience Alpine 3.0/38, 2.5/28 LUCIA. 3. Elevated left ventricular filling pressures. LVEDP 31 mm hg 4. Normal LV systolic function. EF 60% CORONARY ANGIOGRAPHY: LM is a large caliber vessel with normal angiographic appearance. LAD is a moderate caliber vessel with a proximal 20%, mid long 60% stenosis and the remainder of the vessel has mild diffuse irregularities of up to 20%. D1 is a moderate caliber vessel with an ostial 40% stenosis. LCx is a moderate caliber non-dominant vessel with a proximal 60% stenosis. OM1 is a moderate caliber vessel with normal angiographic appearance. RCA is a large caliber dominant vessel with a mid 100% occlusion. Post-PCI angiography, the distal vessel is small to moderate in caliber with mild luminal irregularities. RPDA is a small to moderate sized vessel with a mid 50% stenosis. Recommendations Cardiac Rehabilitation Referral Aggressive Medical Therapy ASA 81mg daily indefinitely Prasugrel 10mg daily for 30 days, then transition to Plavix 75mg daily indefinitely. Remainder of recommendations per inpt consult note. DATE: 02/12/16 0215 ASSESSMENT/PLAN ASSESSMENT/PLAN 1. Unstable angina 2. CAD: 01/2016 inferior STEMI PCI/LUCIA to RCA. 3. CKD3 4. Uncontrolled DM2: noncompliant with diet 5. HTN: controlled 6. HLP Recommendations 1. TTE. lipids, TSH, repeat EKG 2. Discussed lifestyle modifications 3. DAPT, start on heparin drip. Continue with secondary prevention 4. Discussed risks and benefits and agreeable for [facility] in AM. Renal prep to initiate. Problems: STAR DOHERTY LEGAL BILLING SPECIALIST Apr 16, 2017 09:31
[2017-04-16 09:59] LABS: CHOLESTEROL/HDL RATIO 2.4
[2017-04-16] MEDS ORDERED: HEPARIN for IV BOLUS 10,000 UNIT/10 ML VIAL. IV PRN (10:15)
[2017-04-16] MEDS ORDERED: HEPARIN 25,000UTS/500ML PREMIX 500 ML IV PRN (10:15)
--- NOTE | 2017-04-16 10:51 | EKG ---
[facility] [address] [place] [address] Test Date: 2017-04-16 Test Time: 10:29:02 Pat Name: YEMI URIARTE Department: Room: 256 1 Gender: F [employer] Machine Operator: PAR[place]ISE : 1955 Requested By: STAR DOHERTY Order Number: [id number] Reading MD: Measurements Intervals [place] Rate: 66 P: 57 WV: 182 QRS: 18 QRSD: 80 T: 46 QT: 414 QTc: 436 Interpretive Statements SINUS RHYTHM QRS(T) CONTOUR ABNORMALITY CONSIDER ANTEROLATERAL MYOCARDIAL DAMAGE T ABNORMALITY IN ANTERIOR LEADS ABNORMAL ECG RI6.01 Compared to ECG 07/20/2016 09:44:39 T-wave abnormality now present Left-axis deviation no longer present Left ventricular hypertrophy no longer present Early repolarization no longer present
[2017-04-16] MEDS: ACETYLCYSTEINE 20% ORAL SOLN 600 MG/3 ML SYRINGE. PO SCH ×2 (11:03→15:42)
[2017-04-16] MEDS: PRASUGREL 10 MG TABLET. PO SCH (11:03)
[2017-04-16] MEDS: PANTOPRAZOLE 40 MG TABLET.DR. PO SCH (11:03)
[2017-04-16] MEDS: hydroCHLOROthiazide 12.5 MG CAPSULE PO SCH (11:04)
[2017-04-16] MEDS: METOPROLOL TART IMMED RELEASE 25 MG TABLET. PO SCH ×2 (11:04→21:58)
[2017-04-16] MEDS: LOSARTAN POTASSIUM 50 MG TABLET. PO SCH (11:05)
[2017-04-16] MEDS: IV NORMAL SALINE 1000ML BAG 1,000 ML IV SCH (11:05)
[2017-04-16] MEDS: ASPIRIN ENTERIC COATED 81 MG TABLET.DR. PO SCH (11:06)
[2017-04-16 11:33] LABS: INR 1.1 (0.8-1.1); PROTHROMBIN TIME PATIENT 13.1 SEC (11.7-14.0)
--- NOTE | 2017-04-16 12:48 | CARD ---
APPROVED REPORT EXAM: Two-dimensional and M-mode echocardiogram with Doppler and color Doppler. Other Information Quality : Fair Rhythm : NSR INDICATION Chest Pain 2D DIMENSIONS RVDd2.4 (2.9-3.5cm)Left Atrium(2D)3.3 (1.6-4.0cm) IVSd1.0 (0.7-1.1cm)Aortic Root(2D)2.8 (2.0-3.7cm) LVDd4.3 (3.9-5.9cm)LVOT Diameter2.0 (1.8-2.4cm) PWd1.0 (0.7-1.1cm)LVDs2.4 (2.5-4.0cm) FS (%) 23.0 %SV61.5 ml LVEF(%)54.5 (>50%) Aortic Valve AoV Peak Farhad.105.6cm/sAoV VTI23.0cm AO Peak GR.4.5mmHgLVOT Peak Farhad.88.0cm/s LVOT VTI 20.07cmAO Mean GR.2mmHg PAMELA (VMAX)2.43dk8GTX (VTI)2.63cm2 Mitral Valve MV E Spcompcq42.7cm/sMV DECEL [id number] MV A Nbkoafxy57.7cm/sMV FOY85ea E/A Ratio0.6MV A [id number] MVA (PHT)3.49cm2 TDI E/Lateral E'7.7E/Medial E'5.8 Pulmonary Valve PV Peak Mjchzlzs24.9cm/sPV Peak Grad.2mmHg RVOT VTI11.6cm Tricuspid Valve TR P. Dvsvukuo979ya/sRAP [id number] TR Peak Gr.[id number] LEFT VENTRICLE The left ventricle is normal size. There is normal left ventricular wall thickness. The Ejection Frac tion is 55%. Basal inferior hypokinesis. Tissue Doppler imaging reveals mild left ventricular diastol ic dysfunction. Transmitral Doppler flow pattern is Grade I-abnormal relaxation pattern. There is no ventricular septal defect visualized. RIGHT VENTRICLE The right ventricle is normal size. The right ventricular systolic function is normal. ATRIA The left atrium size is normal. The right atrium size is normal. The interatrial septum is intact wit h no evidence for an atrial septal defect or patent foramen ovale as noted on 2-D or Doppler imaging. AORTIC VALVE The aortic valve is normal in structure and function. The aortic valve is trileaflet. Doppler and Col or Flow revealed no significant aortic regurgitation. There is no significant aortic valvular stenosi s. MITRAL VALVE Mitral annular calcification is mild. There is no mitral valve stenosis. Doppler and Color Flow revea led no mitral valve regurgitation noted. TRICUSPID VALVE The tricuspid valve is not well visualized. Doppler and Color Flow revealed trace to mild tricuspid r egurgitation. The PA pressure was estimated at 28 mmHg. There is no tricuspid valve stenosis. PULMONIC VALVE The pulmonic valve is not well visualized. Doppler and Color Flow revealed trace pulmonic valvular re gurgitation. There is no pulmonic valvular stenosis. GREAT VESSELS The aortic root is normal in size. The ascending aorta is normal in size. Pulmonary veins not well vi sualized. The IVC is normal in size and collapses >50% with inspiration. PERICARDIAL EFFUSION There is no evidence of significant pericardial effusion. Critical Notification Critical Value: No <Conclusion> Basal inferior wall hypokinesis. The Ejection Fraction is 55%. Transmitral Doppler flow pattern is Grade I-abnormal relaxation pattern. Doppler and Color Flow revealed trace to mild tricuspid regurgitation. The PA pressure was estimated at 28 mmHg. There is no evidence of significant pericardial effusion.
[2017-04-16] MEDS ORDERED: traZODone 100 MG TABLET. PO SCH (21:00)
[2017-04-16] MEDS ORDERED: ATORVASTATIN CALCIUM 40 MG TABLET. PO SCH (21:00)
[2017-04-17] MEDS: IV NORMAL SALINE 1000ML BAG 1,000 ML IV SCH (00:28)
[2017-04-17 03:00] VITALS: BP 113/67
[2017-04-17 07:00] VITALS: BP 137/69
[2017-04-17] MEDS ORDERED: REGADENOSON 0.4 MG/5 ML DISP.SYRIN. IV ONE (08:00)
[2017-04-17] MEDS ORDERED: GLIMEPIRIDE 2 MG TABLET. PO SCH (08:30)
[2017-04-17 08:42] LABS: CALCIUM 8.3 mg/dL (8.5-10.1); CREATININE 1.3 mg/dL (0.6-1.0); GFR 50.1; POTASSIUM 3.7 mmol/L (3.5-5.1)
--- NOTE | 2017-04-17 09:03 | PDOC ---
Provider Note Provider Note acth today MAYRA PRAJAPATI MD Apr 17, 2017 09:03
[2017-04-17] MEDS: PRASUGREL 10 MG TABLET. PO SCH (10:26)
[2017-04-17] MEDS: hydroCHLOROthiazide 12.5 MG CAPSULE PO SCH (10:26)
[2017-04-17] MEDS: PANTOPRAZOLE 40 MG TABLET.DR. PO SCH (10:26)
[2017-04-17 10:27] VITALS: BP 137/69
[2017-04-17] MEDS: METOPROLOL TART IMMED RELEASE 25 MG TABLET. PO SCH (10:27)
[2017-04-17] MEDS: LOSARTAN POTASSIUM 50 MG TABLET. PO SCH (10:27)
[2017-04-17] MEDS: ASPIRIN ENTERIC COATED 81 MG TABLET.DR. PO SCH (10:27)
--- NOTE | 2017-04-17 11:43 | PDOC ---
CARDIO Progress Notes Date and Time Date of Service 04/17/2017 Time of Evaluation 1130 Subjective Subjective: No Chest Pain, No shortness of breath, No Palpitations Vitals Vitals Vital Signs Date Time Temp Pulse Resp B/P (MAP) Pulse Ox O2 Delivery O2 Flow Rate FiO2 04/17/17 10:27 62 137/69 04/17/17 08:00 Room Air 04/17/17 07:00 99.2 16 100 99.2 Weight Weight [ ] Input and Output Intake and Output Intake and Output 04/17/17 07:00 Intake Total 640 ml Output Total 2000 ml Balance -1360 ml Intake Oral 640 ml Output Urine Total 2000 ml # Voids 1 Laboratory Labs Laboratory Tests Test 04/16/17 17:25 04/16/17 17:31 04/16/17 20:40 04/16/17 23:15 Heparin Anti-Xa Act, Unfractionated 0.42 IU/mL (0.30-0.70) 0.54 IU/mL (0.30-0.70) Glucose (Fingerstick) 200 mg/dL (70-99) 296 mg/dL (70-99) Test 04/17/17 06:55 04/17/17 08:04 Sodium Level 143 mmol/L (136-145) Potassium Level 3.7 mmol/L (3.5-5.1) Chloride Level 107 mmol/L (98-107) Carbon Dioxide Level 26 mmol/L (21-32) Anion Gap 10 (6-14) Blood Urea Nitrogen 21 mg/dL (7-20) Creatinine 1.3 mg/dL (0.6-1.0) Estimated GFR (Cockcroft-Gault) 50.1 Glucose Level 201 mg/dL (70-99) Calcium Level 8.3 mg/dL (8.5-10.1) Glucose (Fingerstick) 167 mg/dL (70-99) Physical Exam HEENT: Neck Supple W Full Motion Chest: Symmetric LUNGS: Clear to Auscultation Heart: S1S2, RRR (SR) Abdomen: Soft N/T Extremities: No Calf Tenderness Neurology: alert, oriented, follow commands Assessment Assessment 1. Chest pain: probable UA. 2. CAD: 01/2016 inferior STEMI PCI/LUCIA to RCA. 3. CKD3 4. Uncontrolled DM2: noncompliant with diet 5. HTN: controlled 6. HLP: controlled Recommendations 1. TTE with EF 55% with basal wall inferior hypokinesis. Discussed with primary cupola tender. Held [facility] for now due to renal insufficiency and will proceed with MPI testing today. 2. Reinforced lifestyle modifications 3. Continue with secondary prevention and [employer] DIRECTOR Apr 17, 2017 11:43
--- NOTE | 2017-04-17 12:00 | RAD ---
APPROVED REPORT Test Type: Pharmacological Stress Nurse/Tech: jv bee Test Indications: chest pain Cardiac History: CAD, NE, CARDIAC STENTS X 2 02/12/2016, HTN, SEE EHR Medications: SEE EHR Medical History: DIABETIC, SEE EHR Resting ECG: SR Resting Heart Rate: 51 bpm Resting Blood Pressure: 119/74mmHg Pretest Chest Pain: No chest pain Nurse/Tech Notes LUNG SOUNDS CLEAR , S1S2 WNL. Consent: The procedure was explained to the patient in lay terms. Informed consent was witnessed. Jose eout was entered into [employer] History and Stress Test performed by [employer] Details Pharmacologic stress testing was performed using 0.4mg per 5ml of regadenoson given intravenously ove r 7-10 seconds. Stress Symptoms HEADACHE, STOMACH ACHE. POST EXERCISE Reason for Termination: Infusion complete Max HR: 89 bpm Max Blood Pressure: 157/81mmHg Chest Pain: No. Arrhythmia: No. ST Change: No. INTERPRETATION Stress EKG Conclusion: Resting EKG shows a sinus rhythm and slight nonspecific ST-T wave changes. The stress EKG shows no significant changes from baseline. No EKG evidence of stress-induced ischemia. Imaging Protocol IMAGE PROTOCOL: Rest Tc-99m/stress Tc-99m 1 day Rest: Stress: Viability: Radiopharm.Tc99m EgjqwmhkiZo52q Sestamibi Jxut73hAg 33mCi Duration 15min. 10min. Img Date 04/17/2017 04/17/2017 Inj-Img Qvjx53djl. 60min. Rest Admin Site:IV - Right ForearmAdministrator:RT Reny (R)(N) Stress Admin Site: IV - Right ForearmAdministrator: [employer] [facility] STRESS DATA End Diast. Vol.56.0mlAv. Heart Rate66.0bpm End Syst. Vol.15.0mlCO Index BSA0.0L/min Myocardial Mass93.0gEject. Dwjhbfwi00.0% Stress Rates Pk. Fill Rate2.21EDV/secLVtime Pk. Fill 227.24msec Pk. Empty Rate3.85ESV/secLVtime Pk. Sikdo052.47msec 10/02 Pk. Fill0.69EDV/sec Stress Scores Regional WT0.00Summed WT0.00 Regional WM0.00Summed WM2.00 LV Perfusion The stress scans showed no significant defects. The rest scans showed no significant defects. Nuclear imaging shows no reversible ischemia or infarct. Wall Motion Normal left ventricular systolic function with an ejection fraction of greater than 70%. LV Perf. Quant 17 Seg. SSS0.00 17 Seg. SRS0.00 17 Seg. SDS0.00 Stress Defect Extent (% LAD)0.00Rest Defect Extent (% LAD)0.00Rev. Defect Extent (% LAD)0.00 Stress Defect Extent (% LCX) 0.00Rest Defect Extent (% LCX)0.00Rev. Defect Extent (% LCX)0.00 Stress Defect Extent (% RCA)0.00Rest Defect Extent (% RCA)0.00Rev. Defect Extent (% RCA)0.00 Stress Defect Extent (% BRANDI)0.00Rest Defect Extent (% BRANDI)0.00Rev. Defect Extent (% BRANDI)0.00 Conclusion 1. No EKG evidence of stress-induced ischemia. 2. Nuclear imaging shows no reversible ischemia or infarct. 3. Good LV systolic function with an ejection fraction of greater than 70%. 4. Low risk Lexiscan nuclear stress test.
== END 2017-04-17 15:10 | disposition home or self-care (01) | DRG 303 ==
LOC: ER 21:38 → 2 SOUTH 04-16 00:17
PROVIDERS: ADMIT Family Medicine; ATTEND Family Medicine
DX: I25.110 Atherosclerotic heart disease of native coronary artery with unstable angina pectoris (principal); E78.5 Hyperlipidemia, unspecified; I25.2 Old myocardial infarction; K21.9 Gastro-esophageal reflux disease without esophagitis; N18.3 Chronic kidney disease, stage 3 (moderate); T38.0X5A Adverse effect of glucocorticoids and synthetic analogues, initial encounter; E10.22 Type 1 diabetes mellitus with diabetic chronic kidney disease; E10.65 Type 1 diabetes mellitus with hyperglycemia; I13.10 Hypertensive heart and chronic kidney disease without heart failure, with stage 1 through stage 4 chronic kidney disease, or unspecified chronic kidney disease; D64.9 Anemia, unspecified; M19.90 Unspecified osteoarthritis, unspecified site; Z90.5 Acquired absence of kidney; Z85.9 Personal history of malignant neoplasm, unspecified; Z79.4 Long term (current) use of insulin; Z82.49 Family history of ischemic heart disease and other diseases of the circulatory system; Z85.42 Personal history of malignant neoplasm of other parts of uterus; Z90.710 Acquired absence of both cervix and uterus; Z91.11 Patient's noncompliance with dietary regimen; Z92.3 Personal history of irradiation; Z95.5 Presence of coronary angioplasty implant and graft; Z95.818 Presence of other cardiac implants and grafts
CPT/HCPCS: 36415; 71010; 78452; 80048; 80061; 80076; 81001; 82962; 83036; 83690; 83880; 84443; 84484; 85027; 85520; 85610; 85730; 93005; 93017; 93306; 96360; 96374; 96375; 96376; A9500; G0481; J1644; J1815; J2785; J7030; 99285-25

== ENCOUNTER 2017-10-19 17:07 | Emergency (ER) | payer OTHER ==
[2017-10-19 17:33] LABS: BILIRUBIN,URINE NEGATIVE (NEG); CLARITY,URINE CLEAR; COLOR,URINE YELLOW; GLUCOSE,URINE NEGATIVE (NEG); NITRITE,URINE NEGATIVE (NEG); PROTEIN,URINE 30 mg/dL (NEG-TRACE)
[2017-10-19 17:40] LABS: BACTERIA,URINE MODERATE /HPF (0-FEW); SQUAMOUS EPITHELIAL CELL,UR MANY /LPF; WBC,URINE >40 /HPF (0-4)
[2017-10-19] MEDS: CIPROFLOXACIN HCL 250 MG TABLET. PO (18:02)
== END 2017-10-19 18:07 | disposition home or self-care (01) ==
LOC: ER 17:07
DX: N39.0 Urinary tract infection, site not specified (principal); I11.9 Hypertensive heart disease without heart failure; E10.9 Type 1 diabetes mellitus without complications; Z85.42 Personal history of malignant neoplasm of other parts of uterus; I25.2 Old myocardial infarction
CPT/HCPCS: 81001; 87086; 99284

== ENCOUNTER → 2017-10-22 | Outpatient (CLI) | payer OTHER ==
[2017-10-22] MEDS: LIDOCAINE 1% Multi-Dose 20 ML VIAL. ID (11:34)
[2017-10-22] MEDS: methylPREDNISolone ACETATE 40 MG/ML VIAL. INT ART (11:34)
[2017-10-22] MEDS: BUPIVACAINE MPF 0.5% 10 ML VIAL for KCIC. IJ (11:34)
== END | disposition home or self-care (01) ==
LOC: KCIC 10:27
DX: M75.22 Bicipital tendinitis, left shoulder (principal)
CPT/HCPCS: 20610; 77002; J1030

== ENCOUNTER 2017-11-27 18:09 | Emergency (ER) | payer OTHER | END 2017-11-27 19:28 | disposition home or self-care (01) | LOC: ER 18:09 | DX: I11.9 Hypertensive heart disease without heart failure (principal); M79.601 Pain in right arm; E10.9 Type 1 diabetes mellitus without complications; Z85.42 Personal history of malignant neoplasm of other parts of uterus; I25.2 Old myocardial infarction; Z79.4 Long term (current) use of insulin | CPT/HCPCS: 99282 ==

== ENCOUNTER → 2017-12-31 | Outpatient (CLI) | payer OTHER | END | disposition home or self-care (01) | LOC: MAMMO 13:28 | DX: Z12.31 Encounter for screening mammogram for malignant neoplasm of breast (principal) | CPT/HCPCS: 77067 ==

== ENCOUNTER 2018-07-06 20:35 | Emergency (ER) | payer OTHER ==
[~2018-07-06] VITALS: Ht 154.9 cm; Wt 66.7 kg
[~2018-07-06 20:35] MED LIST changes: +CIPR250T30 PO; +FAMO-107 PO; -FAMO20TA9 PO; +IBUP-1027 PO; -LOSA50TA6 PO; +LOSA50TA7 PO; -ROPI0.252 PO; +ROPI0.254 PO; +TRAZ-86 PO; -TRAZ100T12 PO
[2018-07-06 22:00] VITALS: BP 137/73
[2018-07-07] MEDS ORDERED: LIDO:MAALOX 1:1 20 ML SINGLE DOSE. PO ONE (00:30)
[2018-07-07] MEDS ORDERED: SUCR1ORA5 PO (01:16)
--- NOTE | 2018-07-07 01:16 | PHYS DOC ---
Past Medical History Past Medical History: Cancer, Diabetes-Type I, Heart Disease, Hypertension, [place] Additional Past Medical Histor: cardiomegaly, uterine cancer Past Surgical History: Hysterectomy, Other Additional Past Surgical Histo: Carpal tunnel, cardiac cath with stents,left nephrectomy Alcohol Use: None Drug Use: None Adult General Chief Complaint Chief Complaint: SWALLOWED FORIEGN BODY HPI HPI Patient is a 62 year old [f__sex] who presents with [] Review of Systems Review of Systems Constitutional: Denies fever or chills [] Eyes: Denies change in visual acuity, redness, or eye pain [] HENT: Denies nasal congestion or sore throat [] Respiratory: Denies cough or shortness of breath [] Cardiovascular: No additional information not addressed in HPI [] GI: Denies abdominal pain, nausea, vomiting, bloody stools or diarrhea [] : Denies dysuria or hematuria [] Musculoskeletal: Denies back pain or joint pain [] Integument: Denies rash or skin lesions [] Neurologic: Denies headache, focal weakness or sensory changes [] Endocrine: Denies polyuria or polydipsia [] All other systems were reviewed and found to be within normal limits, except as documented in this note. Current Medications Current Medications Current Medications Medications (Trade) Dose Ordered Sig/Flory Start Time Stop Time Status Last Admin Dose Admin Multi-Ingredient Mouthwash/Gargle (Gi Cocktail) 20 ml 1X ONCE 07/07/18 00:30 07/07/18 00:31 DC 07/07/18 00:47 20 ML Allergies Allergies Allergies Coded Allergies Type Severity Reaction Last Updated Verified No Known Drug Allergies 10/19/17 No Physical Exam Physical Exam Constitutional: Well developed, well nourished, no acute distress, non-toxic appearance. [] HENT: Normocephalic, atraumatic, bilateral external ears normal, oropharynx moist, no oral exudates, nose normal. [] Eyes: PERRLA, EOMI, conjunctiva normal, no discharge. [] Neck: Normal range of motion, no tenderness, supple, no stridor. [] Cardiovascular:Heart rate regular rhythm, no murmur [] Lungs & Thorax: Bilateral breath sounds clear to auscultation [] Abdomen: Bowel sounds normal, soft, no tenderness, no masses, no pulsatile masses. [] Skin: Warm, dry, no erythema, no rash. [] Back: No tenderness, no CVA tenderness. [] Extremities: No tenderness, no cyanosis, no clubbing, ROM intact, no edema. [] Neurologic: Alert and oriented X 3, normal motor function, normal sensory function, no focal deficits noted. [] Psychologic: Affect normal, judgement normal, mood normal. [] Current Patient Data Vital Signs Vital Signs Date Time Temp Pulse Resp B/P (MAP) Pulse Ox O2 Delivery O2 Flow Rate FiO2 07/06/18 22:00 98.5 71 16 137/73 (94) 99 Room Air 98.5 EKG EKG [] Radiology/Procedures Radiology/Procedures AAS and soft tissue neck (preliminary interpretation by ED physician): No acute process Course & Med Decision Making Course & Med Decision Making Pertinent Labs and Imaging studies reviewed. (See chart for details) [] Dragon Disclaimer Dragon Disclaimer This electronic medical record was generated, in whole or in part, using a voice recognition dictation system. Departure Departure Impression: Primary Impression: Sensation of foreign body in esophagus Disposition: 01 HOME, SELF-CARE Condition: STABLE Referrals: MAYRA PRAJAPATI MD (PCP) SIMÓN TIJERINA MD Patient Instructions: Swallowed Foreign Body, Adult, [id number] Scripts Sucralfate (CARAFATE) 1 Gm/10 Ml Oral.susp 10 ML PO QID, #1200 ML Prov: ERIC RUIZ DO 07/07/18 ERIC RUIZ DO Jul 07, 2018 01:16
--- NOTE | 2018-07-07 03:08 | RAD ---
Acute abdominal series with PA chest: Reason for examination: Swallowed a bone last night. The heart size is normal. Mediastinum is unremarkable. Lung whitehead are clear. No acute bony abnormalities are seen. No radiopaque foreign bodies are identified. In the abdomen, there is no gross organomegaly. Psoas muscles are symmetric. The bowel gas pattern is nonspecific. There are surgical clips in the low abdomen. There are calcifications consistent with phleboliths in the pelvis. No acute bony abnormalities are evident. No radiopaque foreign bodies are identified. IMPRESSION: No acute cardiopulmonary disease. Nonspecific bowel gas pattern. No radiopaque foreign bodies in the chest, abdomen or pelvis. Soft tissue neck 2 views: The airway appears to be patent. No abnormality seen at the epiglottis. Prevertebral soft tissues are normal. No abnormality seen at the cervical spine. No radiopaque foreign bodies identified. IMPRESSION: No focal abnormality evident in the soft tissues of the neck. Electronically signed by: Rachel Cha MD (07/07/2018 3:05 AM) [facility]
== END 2018-07-07 01:39 | disposition home or self-care (01) ==
LOC: ER 20:35
DX: R09.89 Other specified symptoms and signs involving the circulatory and respiratory systems (principal); E10.9 Type 1 diabetes mellitus without complications; I11.9 Hypertensive heart disease without heart failure; I25.2 Old myocardial infarction; Z95.5 Presence of coronary angioplasty implant and graft
CPT/HCPCS: 70360; 74022; 99284

== ENCOUNTER → 2021-10-06 | Outpatient (CLI) | payer MEDICARE, OTHER ==
[~2021-10-06] MED LIST changes: -ASPI-612 PO; +ASPI-886 PO; +CYAN-25 PO; -CYAN10005 PO; -FAMO-107 PO; +FAMO-54 PO; -GLIM2TAB2 PO; +GLIM2TAB7 PO; -HYDR12.53 PO; +HYDR12.575 PO; +LOSA-73 PO; -LOSA50TA7 PO; -NITR0.4T SL; +NITR0.4T24 SL; -PANT40TA3 PO; +PANT40TA77 PO; +SIMV10TA15 PO; -SIMV10TA3 PO; +SUCR1ORA5 PO; +TRAZ-123 PO; -TRAZ-86 PO
--- NOTE | 2021-10-06 11:08 | CARD ---
MR#: [id number] Date of Study: 10/06/2021 Ordering Physician: CHIQUITA WONG, Referring Physician: CHIQUITA WONG, Tech: Frida Reyes [facility] APPROVED REPORT EXAM: Two-dimensional and M-mode echocardiogram with Doppler and color Doppler. Other Information Quality : Technically LimitedHR: 65bpm Rhythm : NSR INDICATION RISK FACTORS Hypertension Obesity 2D DIMENSIONS RVDd2.9 (2.9-3.5cm)Left Atrium(2D)3.1 (1.6-4.0cm) IVSd0.9 (0.7-1.1cm)Aortic Root(2D)3.5 (2.0-3.7cm) LVDd4.1 (3.9-5.9cm)LVOT Diameter2.1 (1.8-2.4cm) PWd0.9 (0.7-1.1cm)LVDs2.6 (2.5-4.0cm) FS (%) 36.4 %SV50.9 ml LVEF(%)66.6 (>50%) Aortic Valve AoV Peak Farhad.124.4cm/sAoV VTI24.8cm AO Peak GR.6.2mmHgLVOT Peak Farhad.93.0cm/s AO Mean GR.3mmHgAVA (VMAX)2.51cm2 Mitral Valve MV E Lftrneca90.9cm/sMV DECEL LFLP091oa MV A Iwyymewq611.0cm/sE/A Ratio0.5 Tricuspid Valve TR P. Afuvwrux993wj/sTR Peak Gr.22mmHg LEFT VENTRICLE The left ventricle is normal size. There is normal left ventricular wall thickness. The left ventricu lar systolic function is normal. Estimated ejection fraction 50-55%. There is normal LV segmental wa ll motion. Transmitral Doppler flow pattern is Grade I-abnormal relaxation pattern. RIGHT VENTRICLE The right ventricle is normal size. There is normal right ventricular wall thickness. The right ventr icular systolic function is normal. ATRIA The left atrium size is normal. The right atrium size is normal. The interatrial septum is intact wit h no evidence for an atrial septal defect or patent foramen ovale as noted on 2-D or Doppler imaging. AORTIC VALVE The aortic valve is normal in structure and function. Doppler and Color Flow revealed trace aortic re gurgitation. There is no significant aortic valvular stenosis. MITRAL VALVE The mitral valve is normal in structure and function. There is no evidence of mitral valve prolapse. There is no mitral valve stenosis. Doppler and Color-flow revealed trace mitral regurgitation. TRICUSPID VALVE The tricuspid valve is normal in structure and function. Doppler and Color Flow revealed trace tricus pid regurgitation. Estimated PAP 20 mmHg. There is no tricuspid valve stenosis. PULMONIC VALVE The pulmonary valve is normal in structure and function. Doppler and Color Flow revealed trace pulmon ic valvular regurgitation. GREAT VESSELS The aortic root is normal in size. The ascending aorta is normal in size. The IVC is normal in size a nd collapses >50% with inspiration. PERICARDIAL EFFUSION There is no evidence of significant pericardial effusion. Critical Notification Critical Value: No <Conclusion> The left ventricular systolic function is normal. Estimated ejection fraction 50-55%. There is normal LV segmental wall motion. Transmitral Doppler flow pattern is Grade I-abnormal relaxation pattern. Trace mitral regurgitation. Trace tricuspid regurgitation. Estimated PAP 20 mmHg. There is no evidence of significant pericardial effusion. Signed by : Nahum Easley, Electronically Approved : 10/06/2021 11:07:41
== END ==
LOC: ECHO 08:37
PROVIDERS: ATTEND Internal Medicine Cardiovascular Disease
DX: Z01.818 Encounter for other preprocedural examination (principal)
CPT/HCPCS: 93306

== ENCOUNTER → 2022-02-27 | Outpatient (CLI) | payer OTHER ==
--- NOTE | 2022-02-27 10:46 | RAD ---
Bilateral digital screening 2-D and 3-D (tomosynthesis) mammogram: Reason for examination: Routine screening. Comparison is made to previous mammograms from 12/31/2017 and 11/23/2016. Bilateral mammograms in CC and oblique projections were obtained with 2-D imaging and 3-D tomosynthes is imaging and reviewed on the workstation. Interpretation was made with the benefit of CAD. Findings: Breast density: Category C. The breasts are heterogeneously dense, which may obscure small masses. There are no suspicious masses, malignant appearing calcifications or architectural distortion. Impression: No evidence of malignancy. ASSESSMENT: BI-RADS 1. Negative. Recommendations: Routine screening mammograms. This patient's information has been entered into a reminder system for the patient to be notified wit h the results of her examination and a target date for the next mammogram. Your patient's mammogram demonstrates that she has dense breast tissue (breast density category C or D), which could hide abnormalities, and if she has other risk factors for breast cancer that have bee n identified, she might benefit from supplemental screening tests that may be suggested by you as her ordering physician. Dense breast tissue, in and of itself, is a relatively common condition. Therefo re, this information is not provided to cause undue concern, but rather to raise your awareness and t o promote discussion with your patient regarding the presence of other risk factors, in addition to d ense breast tissue. Electronically signed by: Nelida Villafana MD (02/27/2022 10:44 AM) [id number]
== END ==
LOC: MAMMO 10:06
PROVIDERS: ATTEND Family Medicine
DX: Z12.31 Encounter for screening mammogram for malignant neoplasm of breast (principal)
CPT/HCPCS: 77063; 77067